=== PATIENT | female | born 1980 | race Caucasian/White ===

== ENCOUNTER 2017-07-09 15:05 | Emergency (ER) | payer OTHER ==
[2017-07-09] MEDS ORDERED: Ketorolac Tromethamine 60 MG/2 ML VIAL ONE (15:41)
--- NOTE | 2017-07-09 20:32 | RAD ---
LUMBAR SPINE THREE VIEWS: 07/09/17 There is slight curvature to the spine convexed right. No fracture, dislocation, or disc space narrow ing was seen. The SI joints appear normal. IMPRESSION: No acute findings. POS: HOME
== END 2017-07-09 15:51 | disposition home or self-care (01) ==
LOC: BURERS 15:05
DX: S39.012A Strain of muscle, fascia and tendon of lower back, initial encounter (principal); G40.909 Epilepsy, unspecified, not intractable, without status epilepticus; W01.0XXA Fall on same level from slipping, tripping and stumbling without subsequent striking against object, initial encounter
CPT/HCPCS: 72100; 96372; J1885

== ENCOUNTER 2017-09-20 00:12 | Emergency (ER) | payer MEDICAID, OTHER ==
[2017-09-20] MEDS ORDERED: Acetaminophen/Codeine 30-300mg Tablet ONE (01:08)
--- NOTE | 2017-09-20 07:43 | RAD ---
RIGHT INDEX FINGER 3 VIEWS: DATE: 09/20/17. FINDINGS: No fracture or dislocation has occurred. The joints currently appear normal. IMPRESSION: No acute findings. POS: HOME
== END 2017-09-20 01:11 | disposition home or self-care (01) ==
LOC: BURERS 00:12
DX: S60.021A Contusion of right index finger without damage to nail, initial encounter (principal); Z71.6 Tobacco abuse counseling; G40.909 Epilepsy, unspecified, not intractable, without status epilepticus; F17.210 Nicotine dependence, cigarettes, uncomplicated; W20.8XXA Other cause of strike by thrown, projected or falling object, initial encounter
CPT/HCPCS: 99406

== ENCOUNTER 2017-09-21 20:17 | Emergency (ER) | payer MEDICAID | END 2017-09-21 20:43 | disposition home or self-care (01) | LOC: BURERS 20:17 | DX: S91.111A Laceration without foreign body of right great toe without damage to nail, initial encounter (principal); G40.909 Epilepsy, unspecified, not intractable, without status epilepticus; F17.210 Nicotine dependence, cigarettes, uncomplicated; W31.2XXA Contact with powered woodworking and forming machines, initial encounter | CPT/HCPCS: 99282 ==

== ENCOUNTER 2017-10-10 23:02 | Emergency (ER) | payer MEDICARE, OTHER ==
[2017-10-10] MEDS ORDERED: AMOXicillin 250 MG CAP ONE (23:29)
== END 2017-10-10 23:28 | disposition home or self-care (01) ==
LOC: BURERS 23:02
DX: S81.852A Open bite, left lower leg, initial encounter (principal); G40.909 Epilepsy, unspecified, not intractable, without status epilepticus; F17.210 Nicotine dependence, cigarettes, uncomplicated; Z79.899 Other long term (current) drug therapy; W54.0XXA Bitten by dog, initial encounter
CPT/HCPCS: 99283

== ENCOUNTER 2017-11-22 00:45 | Emergency (ER) | payer MEDICARE, OTHER ==
[2017-11-22] MEDS ORDERED: methylPREDNISolone Sod Succ/PF 125 MG/2 ML VIAL ONE (01:17)
[2017-11-22] MEDS ORDERED: Amoxicillin/Potassium Clav 875 MG TAB ONE (01:17)
== END 2017-11-22 01:27 | disposition home or self-care (01) ==
LOC: BURERS 00:45
DX: L25.9 Unspecified contact dermatitis, unspecified cause (principal); Z86.73 Personal history of transient ischemic attack (TIA), and cerebral infarction without residual deficits; G40.909 Epilepsy, unspecified, not intractable, without status epilepticus; I25.2 Old myocardial infarction; F17.210 Nicotine dependence, cigarettes, uncomplicated; F41.9 Anxiety disorder, unspecified; Z79.899 Other long term (current) drug therapy
CPT/HCPCS: 99283; J2930

== ENCOUNTER 2017-12-16 21:49 | Emergency (ER) | payer MEDICARE, OTHER ==
[2017-12-16] MEDS ORDERED: Acetaminophen/Codeine 30-300mg Tablet ONE (22:29)
--- NOTE | 2017-12-16 22:33 | RAD ---
RIGHT LEG TWO VIEWS: 12/16/17 No fracture was seen. The tibia and fibula appear intact. The knee and ankle joints showed no acute f indings. IMPRESSION: No acute findings. POS: HOME
== END 2017-12-16 22:57 | disposition home or self-care (01) ==
LOC: BURERS 21:49
DX: S80.11XA Contusion of right lower leg, initial encounter (principal); Z86.73 Personal history of transient ischemic attack (TIA), and cerebral infarction without residual deficits; G40.909 Epilepsy, unspecified, not intractable, without status epilepticus; F17.210 Nicotine dependence, cigarettes, uncomplicated; I25.2 Old myocardial infarction; F41.9 Anxiety disorder, unspecified; Z79.899 Other long term (current) drug therapy; W10.9XXA Fall (on) (from) unspecified stairs and steps, initial encounter

== ENCOUNTER 2018-01-07 19:28 | Emergency (ER) | payer MEDICARE, OTHER ==
[2018-01-07] MEDS ORDERED: Ketorolac Tromethamine 30 MG/ML VIAL ONE (20:03)
[2018-01-07] MEDS ORDERED: Ketorolac Tromethamine 60 MG/2 ML VIAL ONE (20:03)
--- NOTE | 2018-01-08 16:21 | RAD ---
RIGHT KNEE FOUR VIEWS: 01/07/18 No fracture or large joint effusion was seen. The patella appears intact. IMPRESSION: No acute finding. POS: HOME
== END 2018-01-07 20:20 | disposition home or self-care (01) ==
LOC: BURERS 19:28
DX: S83.91XA Sprain of unspecified site of right knee, initial encounter (principal); Z86.73 Personal history of transient ischemic attack (TIA), and cerebral infarction without residual deficits; F17.210 Nicotine dependence, cigarettes, uncomplicated; F41.9 Anxiety disorder, unspecified; Z79.899 Other long term (current) drug therapy; W22.8XXA Striking against or struck by other objects, initial encounter
CPT/HCPCS: 96372; J1885

== ENCOUNTER 2018-02-02 15:50 | Emergency (ER) | payer MEDICARE, OTHER ==
[2018-02-02] MEDS ORDERED: Ondansetron ODT 4 MG TAB ONE (16:18)
== END 2018-02-02 17:03 | disposition home or self-care (01) ==
LOC: BURERS 15:50
DX: A08.4 Viral intestinal infection, unspecified (principal); Z86.73 Personal history of transient ischemic attack (TIA), and cerebral infarction without residual deficits; G40.909 Epilepsy, unspecified, not intractable, without status epilepticus; I25.2 Old myocardial infarction; F41.9 Anxiety disorder, unspecified; F17.210 Nicotine dependence, cigarettes, uncomplicated
CPT/HCPCS: 99283; Q0162

== ENCOUNTER 2018-05-01 16:59 | Emergency (ER) | payer MEDICARE ==
[2018-05-01] MEDS ORDERED: Dexamethasone 4 MG TAB ONE (17:53)
--- NOTE | 2018-05-01 19:04 | RAD ---
LEFT HAND THREE VIEWS: HISTORY: Left hand injury. Injury to 4th and 5th digits. TECHNIQUE: AP, lateral, and oblique views of the left hand are obtained. FINDINGS: Three views of the left hand demonstrate no definite evidence of left hand fractures, subluxations, o r bony lesions. IMPRESSION: Normal three views left hand. POS: [facility]
== END 2018-05-01 17:57 | disposition home or self-care (01) ==
LOC: BURERS 16:59
DX: S64.493A Injury of digital nerve of left middle finger, initial encounter (principal); S64.495A Injury of digital nerve of left ring finger, initial encounter; Z86.73 Personal history of transient ischemic attack (TIA), and cerebral infarction without residual deficits; G40.909 Epilepsy, unspecified, not intractable, without status epilepticus; I25.2 Old myocardial infarction; F41.9 Anxiety disorder, unspecified; F17.210 Nicotine dependence, cigarettes, uncomplicated; F17.220 Nicotine dependence, chewing tobacco, uncomplicated; X50.9XXA Other and unspecified overexertion or strenuous movements or postures, initial encounter
CPT/HCPCS: J8540

== ENCOUNTER 2018-06-30 00:16 | Emergency (ER) | payer MEDICARE ==
--- NOTE | 2018-06-30 07:40 | RAD ---
RIGHT HAND 3 VIEWS: DATE: 06/30/2018. FINDINGS: No fracture was seen. All bones currently appear intact. The joints appear normal. IMPRESSION: No acute findings. POS: HOME
== END 2018-06-30 01:12 | disposition home or self-care (01) ==
LOC: BURERS 00:16
DX: S60.021A Contusion of right index finger without damage to nail, initial encounter (principal); G40.909 Epilepsy, unspecified, not intractable, without status epilepticus; K58.9 Irritable bowel syndrome, unspecified; F17.220 Nicotine dependence, chewing tobacco, uncomplicated; Z86.73 Personal history of transient ischemic attack (TIA), and cerebral infarction without residual deficits; Z79.899 Other long term (current) drug therapy; Z79.891 Long term (current) use of opiate analgesic; W01.0XXA Fall on same level from slipping, tripping and stumbling without subsequent striking against object, initial encounter
CPT/HCPCS: Q4049

== ENCOUNTER 2018-08-31 16:12 | Emergency (ER) | payer MEDICARE, OTHER | END 2018-08-31 16:43 | disposition home or self-care (01) | LOC: BURERS 16:12 | DX: S90.812A Abrasion, left foot, initial encounter (principal); F17.210 Nicotine dependence, cigarettes, uncomplicated; Z79.891 Long term (current) use of opiate analgesic; Z79.899 Other long term (current) drug therapy; W22.8XXA Striking against or struck by other objects, initial encounter | CPT/HCPCS: 99283 ==

== ENCOUNTER 2018-09-06 02:58 | Emergency (ER) | payer MEDICARE, OTHER ==
[2018-09-06 03:21] LABS: #Basophils 0.1 thou/uL (0.0-0.2); #Eosinphils 0.2 thou/uL (0.0-0.7); #Lymphocytes 3.5 thou/uL (1.20-3.40); #Monocytes 0.7 thou/uL (0.11-0.59); #Neutrophils 4.8 thou/uL (1.40-6.50); %Basophils 1.1 % (0.0-1.0); %Eosinophils 1.9 % (0.0-10.0); %Lymphocytes 38.1 % (21.0-51.0); %Monocytes 7.4 % (0.0-10.0); %Neutrophils 51.4 % (42.0-75.0); Hemoglobin 13.4 g/dL (12.0-16.0); Mean Corpuscular HGB CONC 33.2 g/dL (32.0-36.0); Mean Corpuscular Hemoglobin 29.3 pg (27.0-31.0); Mean Corpuscular Volume 88.5 fL (78.0-98.0); Platelet Count 298 thou/uL (130-400); RBC Distribution Width 14.6 % (11.5-14.5); Red Blood Cell (RBC) Count 4.55 mill/uL (4.20-5.40); White Blood Cell (WBC) Count 9.3 thou/uL (4.8-10.8)
[2018-09-06 03:26] LABS: INR-International Normal Ratio 0.9; PTT 29.5 SEC (22.9-36.1); Prothrombin Time 12.4 SEC (12.0-14.7)
[2018-09-06] MEDS ORDERED: methylPREDNISolone Sod Succ/PF 125 MG/2 ML VIAL ONE (03:28)
[2018-09-06] MEDS ORDERED: Famotidine In NaCl 20 mg/50 ml Premix Bag ONE (03:28)
[2018-09-06] MEDS ORDERED: diphenhydrAMINE 50 MG/ML VIAL ONE (03:28)
[2018-09-06 03:35] LABS: BHCG - Serum Negative (NEGATIVE); Pregs Control Bar Appear? YES (CONTROL BAR)
[2018-09-06 03:36] LABS: Acetaminophen Less than 6.0 mcg/mL (10.0-30.0); Alcohol Less than 10 mg/dL (Less than 10); Salicylate Less than 8.0 mg/dL (15.0-30.0)
[2018-09-06 03:37] LABS: Pregs Control Background? CLEAR/WHITE (CLR/WHITE)
[2018-09-06 03:38] LABS: Anion Gap 15 mmol/L (10-20); BUN (Urea Nitrogen) 9 mg/dL (7.0-18.7); Calc. Creatinine Clearance 0 mL/min (70-130); Carbon Dioxide 24 mmol/L (22-29); Chloride 105 mmol/L (98-107); Estimated GFR-MDRD 87; Potassium 3.3 mmol/L (3.5-5.1); Sodium 141 mmol/L (136-145)
[2018-09-06 03:39] LABS: ALT (SGPT) 12 U/L (8-55); AST (SGOT) 12 U/L (5-34); Albumin 4.4 g/dL (3.5-5.0); Alkaline Phosphatase 93 U/L (40-150); Bilirubin, Total Less than 0.2 mg/dL (0.2-1.2); CK (CPK) 58 U/L (29-168); Calcium 9.6 mg/dL (7.8-10.44); Globulin 3.1 g/dL (2.4-3.5); Glucose 95 mg/dL (70-105); Protein, Total 7.5 g/dL (6.0-8.3)
[2018-09-06 04:10] LABS: Amphetamine Not Detected (NotDetected); Barbiturates Screen Not Detected (NotDetected); Benzodiazepine Screen Not Detected (NotDetected); Cocaine Metabolite Screen Not Detected (NotDetected); Medtox Control Line Valid? VALID (VALID); Methadone Not Detected (NotDetected); Methamphetamine Not Detected (NotDetected); Opiate Screen Detected (NotDetected); Oxycodone Screen Not Detected (NotDetected); Phencyclidine (PCP) Not Detected (NotDetected); THC/Cannabinoid Screen Not Detected (NotDetected); Tricyclic Screen Not Detected (NotDetected)
[2018-09-06] MEDS ORDERED: Ketorolac Tromethamine 30 MG/ML VIAL ONE (04:49)
[2018-09-06] MEDS ORDERED: Metoclopramide HCl 10 MG/2 ML VIAL ONE (04:49)
--- NOTE | 2018-09-06 07:49 | CT ---
PRELIMINARY REPORT/[facility]/EMERGENCY AFTER HOURS PROCEDURE: EXAM: CT Head Without Contrast EXAM DATE/TIME: 09/06/2018 3:14 AM CLINICAL HISTORY: 37 years old, female; Weakness, extremity and weakness, facial; Right; Patient HX: RT sided weakness that started at 1130 pm. PT states has HX of aneurysm TECHNIQUE: Imaging protocol: Axial computed tomography images of the head without contrast. Radiation optimizati on: All CT scans at this facility use at least one of these dose optimization techniques: automated e xposure control; mA and/or kV adjustment per patient size (includes targeted exams where dose is matched to clinical indication); or iterative reconstruction. Other technique: STROKE PROTOCOL was implemented. COMPARISON: No relevant prior studies available. FINDINGS: Brain: Normal. No hemorrhage. Unremarkable white matter. No mass effect. Ventricles: Normal. No ventriculomegaly. Bones/joints: Unremarkable. No acute fracture. Sinuses: Visualized sinuses are unremarkable. No fluid levels. Mastoid air cells: Visualized mastoid air cells are well aerated. No mastoid effusion. Soft tissues: Unremarkable. IMPRESSION: No acute intracranial abnormality. ASSESSMENT: ASPECTS ([place] Stroke Program Early CT Score) is 10. Thank you for allowing us to participate in the care of your patient. Dictated and Authenticated by: Chloe Yun DO 09/06/2018 3:23 AM Central Time ([place] & [place]) FINAL REPORT CT BRAIN WITHOUT CONTRAST: Date: 09/06/[address] was done for evaluation of weakness. Comparison made with the 03/24/18 CT. FINDINGS: The ventricles are normal in size with no shift. No intracranial bleeding, mass, or sign of stroke fo und. There is good christiansen-white distinction. The visible paranasal sinuses and mastoid air cells are cl ear. The posterior fossa is unremarkable. Each IAC is visualized and symmetrical with respect to the other. IMPRESSION: Stable exam, showing no acute intracranial findings. Report in agreement with preliminary reading by Joel. POS: HOME
--- NOTE | 2018-09-06 07:58 | CT ---
PRELIMINARY REPORT/[facility]/EMERGENCY AFTER HOURS PROCEDURE: EXAM: CT Angiography Head With Contrast EXAM DATE/TIME: 09/06/2018 4:06 AM CLINICAL HISTORY: 37 years old, female; Speech disturbance and weakness; Slurred speech; Patient HX: PT has HX of seizu res, aneurysm and bells palsy; Additional info: PT allergic to iodine contrast, PT was premedicated w ith solumedrol, benadryl and pepcide 30 min prior to exam TECHNIQUE: Imaging protocol: Axial computed tomographic angiography images of the head with intravenous contrast using CT angiography protocol. Coronal and sagittal reformatted images were created and reviewed. 3D rendering: MIP reconstructed images were created and reviewed. Radiation optimization: All CT scans at this facility use at least one of these dose optimization genie hniques: automated exposure control; mA and/or kV adjustment per patient size (includes targeted exam s where dose is matched to clinical indication); or iterative reconstruction. Contrast material: ISOVUE 370; Contrast volume: 100 ml; Contrast route: RT AC; COMPARISON: CT Brain WO Con 09/06/2018 3:14 AM FINDINGS: Right internal carotid artery: Unremarkable. Intracranial segment is patent with no significant steno sis. No aneurysm. Right anterior cerebral artery: Unremarkable. No occlusion or significant stenosis. No aneurysm. Right middle cerebral artery: Unremarkable. No occlusion or significant stenosis. No aneurysm. Right posterior cerebral artery: Unremarkable. No occlusion or significant stenosis. No aneurysm. Right vertebral artery: Unremarkable. No occlusion or significant stenosis. No aneurysm. Left internal carotid artery: Unremarkable. Intracranial segment is patent with no significant stenos is. No aneurysm. Left anterior cerebral artery: Unremarkable. No occlusion or significant stenosis. No aneurysm. Left middle cerebral artery: Unremarkable. No occlusion or significant stenosis. No aneurysm. Left posterior cerebral artery: Unremarkable. No occlusion or significant stenosis. No aneurysm. Left vertebral artery: Unremarkable. No occlusion or significant stenosis. No aneurysm. Basilar artery: Unremarkable. No occlusion or significant stenosis. No aneurysm. IMPRESSION: No hemodynamic significant stenosis or occlusion. EXAM: CT Angiography Neck With Contrast EXAM DATE/TIME: 09/06/2018 4:06 AM CLINICAL HISTORY: 37 years old, female; Speech disturbance and weakness; Slurred speech; Patient HX: PT has HX of seizu res, aneurysm and bells palsy; Additional info: PT allergic to iodine contrast, PT was premedicated w ith solumedrol, benadryl and pepcide 30 min prior to exam TECHNIQUE: Imaging protocol: Axial computed tomographic angiography images of the neck with intravenous contrast using CT angiography protocol. Coronal and sagittal reformatted images were created and reviewed. COMPARISON: CT Brain WO Con 09/06/2018 3:14 AM FINDINGS: VASCULATURE: Right common carotid artery: Unremarkable. No stenosis. No dissection or occlusion. Right internal carotid artery: Unremarkable extracranial segment. No stenosis. No dissection or occlu valdez. Right external carotid artery: Unremarkable. No occlusion or stenosis of the origin. Right vertebral artery: Unremarkable. No stenosis. No dissection or occlusion. Left common carotid artery: Unremarkable. No stenosis. No dissection or occlusion. Left internal carotid artery: Unremarkable extracranial segment. No stenosis. No dissection or occlus ion. Left external carotid artery: Unremarkable. No occlusion or stenosis of the origin. Left vertebral artery: Unremarkable. No stenosis. No dissection or occlusion. NECK: Bones/joints: No acute fracture. Soft tissues: Normal. No significant soft tissue swelling. IMPRESSION: No hemodynamic significant stenosis or occlusion. COMMENT: Reference per NASCET criteria for degree of stenosis: Mild: less than 50% stenosis. Moderate: 50-69% stenosis. Severe: 70-94% stenosis. Near occlusion: 95-99% stenosis. Thank you for allowing us to participate in the care of your patient. Dictated and Authenticated by: Chloe Yun DO 09/06/2018 4:43 AM Central Time ([place] & [place]) FINAL REPORT CT ANGIO OF THE HEAD AND NECK: Date: 09/06/[address] of the head and neck was done for evaluation of weakness. A bolus of IV contrast was given and MIP images with reconstructions in multiple planes were obtained. FINDINGS: CT ANGIO HEAD: There is good filling of the anterior cerebral arteries throughout all segments. The middle cerebral arteries fill symmetrically and show no sign of obstruction in all segments. Posterior cerebral arter ies are visualized and are unoccluded. The superior cerebellar arteries fill symmetrically. One can f aintly see each anterior inferior cerebellar artery filling. The vertebral arteries both fill, with t he left side being dominant. The basilar artery fills normally. Both internal carotid arteries fill w ithout obstruction. The intercavernous portion of right internal carotid artery is a little less defi kevin on the left, but all sections of it seem to fill well. CT ANGIO NECK: All three great vessels fill normally from the aortic arch. There is no sign of stenosis in either co mmon carotid artery, at either bifurcation, in the internal or external carotid segments. Both verteb ral arteries fill with the left side being dominant. No neck masses seen. There is a retention cyst in the floor of the left maxillary sinus. The sinuses are otherwise clear. IMPRESSION: No evidence of significant stenosis, occlusion, or other acute change in the great vessels of the nec k or the major intracranial arteries. Report in agreement with preliminary reading by Joel. POS: HOME
== END 2018-09-06 04:58 | disposition home or self-care (01) ==
LOC: BURERS 02:58
DX: F43.0 Acute stress reaction (principal); R41.82 Altered mental status, unspecified; E11.9 Type 2 diabetes mellitus without complications; G40.909 Epilepsy, unspecified, not intractable, without status epilepticus; F17.210 Nicotine dependence, cigarettes, uncomplicated; Z79.899 Other long term (current) drug therapy; Z79.01 Long term (current) use of anticoagulants
CPT/HCPCS: 36415; 36416; 70450; 70496; 70498; 80053; 80177; 80306; 80307; 82550; 83605; 84484; 84703; 85025; 85610; 85730; 93005; 96365; 96375; J1200; J1885; J2765; J2930

== ENCOUNTER 2018-12-21 21:34 | Emergency (ER) | payer MEDICARE, OTHER ==
[2018-12-21 22:36] LABS: #Basophils 0.1 thou/uL (0.0-0.2); #Eosinphils 0.2 thou/uL (0.0-0.7); #Lymphocytes 3.7 thou/uL (1.20-3.40); #Monocytes 0.7 thou/uL (0.11-0.59); #Neutrophils 6.4 thou/uL (1.40-6.50); %Basophils 1.1 % (0.0-1.0); %Eosinophils 1.5 % (0.0-10.0); %Lymphocytes 33.4 % (21.0-51.0); %Monocytes 6.2 % (0.0-10.0); %Neutrophils 57.9 % (42.0-75.0); Hemoglobin 13.1 g/dL (12.0-16.0); Mean Corpuscular HGB CONC 32.3 g/dL (32.0-36.0); Mean Corpuscular Hemoglobin 28.9 pg (27.0-31.0); Mean Corpuscular Volume 89.5 fL (78.0-98.0); Mean Platelet Volume 7.4 fL (7.4-10.4); Platelet Count 290 thou/uL (130-400); RBC Distribution Width 13.7 % (11.5-14.5); Red Blood Cell (RBC) Count 4.52 mill/uL (4.20-5.40)
[2018-12-21 22:38] LABS: Pregs Control Background? CLEAR/WHITE (CLR/WHITE); Pregs Control Bar Appear? YES (CONTROL BAR)
[2018-12-21 22:41] LABS: BHCG - Serum Negative (NEGATIVE)
[2018-12-21] MEDS ORDERED: Fentanyl 100 MCG/2 ML VIAL ONE (22:50)
[2018-12-21 22:53] LABS: ALT (SGPT) 17 U/L (8-55); AST (SGOT) 16 U/L (5-34); Albumin 4.2 g/dL (3.5-5.0); Alkaline Phosphatase 87 U/L (40-110); Anion Gap 15 mmol/L (10-20); BUN (Urea Nitrogen) 6 mg/dL (7.0-18.7); Bilirubin, Total 0.3 mg/dL (0.2-1.2); Calc. Creatinine Clearance 0 mL/min (70-130); Calcium 9.1 mg/dL (7.8-10.44); Carbon Dioxide 22 mmol/L (22-29); Chloride 107 mmol/L (98-107); Estimated GFR-MDRD 86; Globulin 2.5 g/dL (2.4-3.5); Glucose 91 mg/dL (70-105); Potassium 3.8 mmol/L (3.5-5.1); Protein, Total 6.7 g/dL (6.0-8.3); Sodium 140 mmol/L (136-145)
[2018-12-21 23:13] LABS: CK (CPK) 109 U/L (29-168)
--- NOTE | 2018-12-22 08:02 | RAD ---
EXAM: Chest PA and lateral: HISTORY: Cough. COMPARISON: 10/28/2017 FINDINGS: Heart: Normal cardiac silhouette Aorta: Unremarkable Pulmonary vessels: Normal Costophrenic angles: Costophrenic angles are clear. Lungs: No consolidation or masses. Pneumothorax: No pneumothorax Osseous structures: No osseous abnormalities IMPRESSION: No acute cardiopulmonary process.
== END 2018-12-21 23:20 | disposition home or self-care (01) ==
LOC: BURERS 21:34
DX: R07.9 Chest pain, unspecified (principal); K21.9 Gastro-esophageal reflux disease without esophagitis; E11.9 Type 2 diabetes mellitus without complications; F17.210 Nicotine dependence, cigarettes, uncomplicated; E78.00 Pure hypercholesterolemia, unspecified; G40.909 Epilepsy, unspecified, not intractable, without status epilepticus; Z79.899 Other long term (current) drug therapy
CPT/HCPCS: 36415; 71046; 80053; 82550; 84484; 84703; 85025; 93005; 96372; J3010